=== PATIENT | male | born 1995 | race Caucasian/White ===

== ENCOUNTER 2018-06-11 21:16 | Emergency (ER) | payer OTHER ==
[2018-06-11] MEDS ORDERED: AMOXICILLIN/CLAVULANATE POT 875/125 MG TAB PO ONE (21:30)
--- NOTE | 2018-06-11 21:31 | EDPHY ---
H & P Stated Complaint: Cat Bite Time Seen by Provider: 06/11/18 21:28 HPI/ROS: HPI: This is a 22-year-old male who presents with Chief Complaint: Cat bite Location: Left thumb Quality: Cat bite Duration: Yesterday afternoon Signs and Symptoms: No bleeding, no radiation, no numbness, no weakness, no tingling, no incontinence, no decreased range of motion, no swelling, no pain, no fever Timing: Acute, gradually worsening Severity: Mild Context: Patient is right-hand dominant, presents with cat bite of his left thumb that occurred yesterday. He reports that his cat another CAT were getting into a fight and he put his hand in between them to break up the fight. He was bit by his cat which is up-to-date on vaccinations. He reports that he wash the area with soap and water and then applied hydrogen peroxide. He denies any radiation, warmth, redness, discharge, pain, swelling. Modifying Factors: Local wound care Comment: ROS: see HPI Constitutional: No fever, no chills, no weight loss Eyes: No blurred vision Respiratory: No shortness of breath, no cough Cardiovascular: No chest pain Gastrointestinal: No nausea, no vomiting no diarrhea Genitourinary: No dysuria Extremities: No myalgias Neurologic: No weakness, no numbness Skin: No rashes Hematologic: No bruising, no bleeding MEDICAL/SURGICAL/SOCIAL HISTORY: Medical history: Generally healthy. Does not take any regular medications. Surgical history: Denies Social history: Employed. CONSTITUTIONAL: Extremely polite and cooperative nontoxic-appearing young adult white male, awake and alert, no obvious distress HEENT: Atraumatic and normocephalic. EXTREMITIES: 2/2 pulses, strength 5/5, left thumb shows several superficial abrasions consistent with cat bite around the distal portion; no fish erythema or streaking; DIP/PIP/MCP flexion/extension intact with good light touch sensation. no deformities, no clubbing, no cyanosis or edema. NEUROLOGICAL: no focal neuro deficits. GCS 15. Light touch sensation intact. SKIN: Warm and dry, no erythema. no rash. Good capillary refill. Source: Patient Exam Limitations: No limitations - Personal History Current Tetanus Diphtheria and Acellular Pertussis (TDAP): Yes - Medical/Surgical History Hx Asthma: No Hx Chronic Respiratory Disease: No Hx Diabetes: No Hx Cardiac Disease: No Hx Renal Disease: No Hx Cirrhosis: No Hx Alcoholism: No Hx HIV/AIDS: No Hx Splenectomy or Spleen Trauma: No Other PMH: Denies - Social History Smoking Status: Current every day smoker Constitutional: Initial Vital Signs Temperature (C) 36.9 C 06/11/18 21:18 Heart Rate 98 06/11/18 21:18 Respiratory Rate 18 06/11/18 21:18 Blood Pressure 128/78 H 06/11/18 21:18 O2 Sat (%) 94 06/11/18 21:18 O2 Delivery Mode Room Air Allergies/Adverse Reactions: Sulfa (Sulfonamide Antibiotics) Allergy (Verified 06/11/18 21:18) Home Medications: Medication Instructions Recorded Amoxicillin/Clavulanate Pot 875 mg PO BID #14 tab 06/11/18 [Augmentin 875 MG TAB (*)] Medical Decision Making Procedures: Procedure: Splint placement. A left thumb aluminum caged finger splint was applied by the Emergency Room waste management recycling technician. After application of the splint I returned and re-examined the patient. The splint was adequately immobilizing the joint and distal to the splint the patient's circulation and sensation was intact. ED Course/Re-evaluation: Tetanus is current. No indication for rabies prophylaxis. No fluctuance to I and D. No fish cellulitis. Thumb washed with soap and water, Tegaderm and aluminum caged finger splint to immobilize for the next 48 hr applied. Given Augmentin in the emergency room and prescription for same. No signs of neurovascular compromise/tenting of skin/compartment syndrome/ extremities and joints examined above and below area of concern and are neurovascularly intact/septic arthritis/tenosynovitis. This patient was seen under the supervision of my secondary supervising physician. I evaluated care for this patient independently. Discussed this patient with Dr. Mott. Differential Diagnosis: Differential diagnosis includes but is not limited to paronychia, cellulitis, tenosynovitis, abscess. Departure - Departure Disposition: Home, Routine, Self-Care Clinical Impression: Cat bite of left thumb Qualifiers: Encounter type: initial encounter Qualified Code(s): S61.052A - Open bite of left thumb without damage to nail, initial encounter Condition: Good Instructions: Animal Bite (ED) Additional Instructions: Keep the splint dry and in place for 48 hours. After 48 hours, you may remove the dressing; wash the site daily with mild soap and water; then pat dry. Take Tylenol 650 mg every 4 hours and/or Ibuprofen 600 mg every 8 hours with food as needed for pain. Please take all the Augmentin as directed. Do not skip any doses. Return to the ER immediately if you experience redness, red streaks, have fevers /chills, flu like symptoms, limited range of motion, or any other symptoms that concern you. Referrals: [facility],. [Clinic] - As per Instructions Prescriptions: Amoxicillin/Clavulanate Pot [Augmentin 875 MG TAB (*)] 875 mg PO BID #14 tab
[2018-06-11 22:01] VITALS: BP 128/88
== END 2018-06-11 22:01 | disposition home or self-care (01) ==
DX: S61.052A Open bite of left thumb without damage to nail, initial encounter (principal); F17.200 Nicotine dependence, unspecified, uncomplicated; W55.01XA Bitten by cat, initial encounter; Y99.8 Other external cause status
CPT/HCPCS: L3925